=== PATIENT | female | born 1985 | race African-American/Black ===

== ENCOUNTER 2024-02-26 17:35 | Inpatient (IN) | payer MEDICAID ==
[2024-02-26] MEDS ORDERED: Butorphanol 2 MG/ML SDV IVPUSH ONE (17:47)
[2024-02-26] MEDS ORDERED: Lactated Ringers 1,000 ML IV SCH ×3 (18:00→19:30)
[2024-02-26] MEDS ORDERED: Citric Acid/Sodium Citrate Solution 30 ML Cup PO ONE (18:54)
[2024-02-26] MEDS ORDERED: Sodium Chloride 0.9% 10 ML Syringe FLUSH PRN (18:54)
[2024-02-26] MEDS ORDERED: Sodium Chloride 0.9% 2.5 ML Syringe FLUSH PRN (18:54)
[2024-02-26] MEDS ORDERED: Sodium Chloride 0.9% 20 ML SDV IV PRN (18:54)
[2024-02-26] MEDS ORDERED: Oxytocin/0.9 % Sodium Chloride 30 UNIT/500 ML BAG IV SCH (19:00)
[2024-02-26 19:01] LABS: HEMATOCRIT 32.5 % (37.0-47.0); HEMOGLOBIN 11.4 g/dL (12.0-16.0); MEAN CORPUSCULAR HEMOGLOBIN 31.1 pg (28.0-32.0); MEAN CORPUSCULAR HGB CONC 35.1 g/dL (32.0-36.0); MEAN CORPUSCULAR VOLUME 88.6 fL (83.0-99.0); MEAN PLATELET VOLUME 10.2 fL (9.4-12.3); PLATELET COUNT,PLT 188 K/uL (150-400); RED BLOOD CELL COUNT 3.67 M/uL (4.10-5.30); WHITE BLOOD CELL COUNT,WBC 7.37 K/uL (3.9-11.3)
[2024-02-26] MEDS ORDERED: Ondansetron 4 MG/2 ML SDV IVPUSH PRN ×3 (19:18→21:13)
[2024-02-26] MEDS ORDERED: Bisacodyl 10 MG Supp RECTAL PRN (19:18)
[2024-02-26] MEDS ORDERED: Acetaminophen/oxyCODONE 325-5 MG Tab PO PRN ×2 (19:18→21:13)
[2024-02-26] MEDS ORDERED: diphenhydrAMINE 50 MG/ML SDV IVPUSH PRN (19:18)
[2024-02-26] MEDS ORDERED: Misoprostol 200 MCG Tab RECTAL PRN (19:18)
[2024-02-26] MEDS ORDERED: Methylergonovine 0.2 MG/1 ML Amp IM PRN (19:18)
[2024-02-26] MEDS ORDERED: Lanolin 100% Cream 7 GM Tube TOP PRN (19:18)
[2024-02-26] MEDS ORDERED: EPINEPHrine 1 MG/1 ML Amp ONE (19:20)
[2024-02-26] MEDS ORDERED: fentaNYL 100 MCG/2 ML SDV ONE (19:20)
[2024-02-26] MEDS ORDERED: Oxytocin 10 Units/1 ML SDV ONE (19:20)
[2024-02-26] MEDS ORDERED: ceFAZolin 1 GM Vial ONE (19:20)
[2024-02-26] MEDS ORDERED: Bupivacaine 0.25% 30 ML SDV ONE (19:20)
[2024-02-26] MEDS ORDERED: Morphine PF 10 MG/10 ML SDV ONE (19:20)
[2024-02-26] MEDS ORDERED: Ropivacaine 0.5% 5 MG/ML 30 ML SDV ONE (19:20)
[2024-02-26] MEDS: Ampicillin 2 GM in Sodium Chloride 0.9% 100 ML IV STA (19:49)
[2024-02-26] MEDS ORDERED: Phenylephrine HCl In 0.9% NaCl 1 MG/10 ML Syringe ONE (19:51)
[2024-02-26] MEDS ORDERED: Tranexamic Acid 1,000 MG/10 ML Vial ONE (20:14)
[2024-02-26] MEDS ORDERED: HYDROmorphone 1 MG/ML Syringe IVPUSH PRN (21:13)
[2024-02-26] MEDS ORDERED: fentaNYL 50 MCG/ML SDV IVPUSH PRN (21:13)
[2024-02-26] MEDS ORDERED: Naloxone 0.4 MG/ML SDV IVPUSH PRN (21:13)
[2024-02-26] MEDS ORDERED: Albuterol 0.083% 2.5 MG/3 ML Neb Soln NEB PRN (21:13)
[2024-02-26] MEDS ORDERED: Morphine 2 MG/ML SYRINGE IVPUSH PRN (21:13)
[2024-02-26] MEDS ORDERED: Phenylephrine HCl In 0.9% NaCl 1 MG/10 ML Syringe IVPUSH PRN (21:13)
[2024-02-26] MEDS ORDERED: fentaNYL 100 MCG/2 ML SDV IVPUSH PRN (21:13)
[2024-02-26] MEDS ORDERED: Metoclopramide 10 MG/2 ML SDV IVPUSH PRN (21:13)
[2024-02-26] MEDS ORDERED: ePHEDrine 50 MG/ML SDV IM PRN ×2 (21:14→21:15)
[2024-02-26] MEDS ORDERED: Acetaminophen 1,000 MG in Premix Bag 1 BAG IV SCH (21:15)
[2024-02-26] MEDS: Acetaminophen 1,000 MG in Premix Bag 1 BAG IV SCH (22:00)
[2024-02-27] MEDS: Ketorolac 30 MG/ML SDV IVPUSH SCH (01:45)
[2024-02-27 02:51] LABS: PH,UMBILICAL ARTERIAL 7.193 (7.18-7.38); PH,UMBILICAL VENOUS 7.251 (7.25-7.45)
[2024-02-27 07:02] LABS: HEMOGLOBIN 10.1 g/dL (12.0-16.0); MEAN CORPUSCULAR HEMOGLOBIN 31.2 pg (28.0-32.0); MEAN CORPUSCULAR HGB CONC 34.8 g/dL (32.0-36.0); MEAN CORPUSCULAR VOLUME 89.5 fL (83.0-99.0); MEAN PLATELET VOLUME 10.2 fL (9.4-12.3); NRBC ABSOLUTE 0.02 K/uL (0.00-0.02); NRBC PERCENT 0.1 /100WBC (0.0-0.2); PLATELET COUNT,PLT 190 K/uL (150-400); RED BLOOD CELL COUNT 3.24 M/uL (4.10-5.30); WHITE BLOOD CELL COUNT,WBC 17.49 K/uL (3.9-11.3)
[2024-02-27] MEDS: Docusate Sodium 100 MG Cap PO SCH (08:05)
[2024-02-27] MEDS: diphenhydrAMINE 50 MG/ML SDV IVPUSH PRN (14:00)
[2024-02-28] MEDS: Nalbuphine 10 MG/1 ML Vial IVPUSH PRN (00:03)
[2024-02-28] MEDS: Acetaminophen/oxyCODONE 325-5 MG Tab PO PRN (09:54)
[2024-02-28] MEDS: Ibuprofen 800 MG Tab PO PRN (12:59)
== END 2024-02-28 14:31 | disposition home or self-care (01) | DRG 788 ==
LOC: MW.OB 17:35 → MW.OBCHECK 17:35 → MW.OB 18:54 → OBSVTOIN 20:10 → MW.OB 02-27 01:00
PROVIDERS: ADMIT Obstetrics & Gynecology; ATTEND Obstetrics & Gynecology Obstetrics
PROC: 10D00Z1 Extraction of Products of Conception, Low, Open Approach (ICD-10-PCS; principal; 2024-02-27)
DX: O34.211 Maternal care for low transverse scar from previous cesarean delivery (principal); O99.824 Streptococcus B carrier state complicating childbirth; O99.02 Anemia complicating childbirth; O69.2XX0 Labor and delivery complicated by other cord entanglement, with compression, not applicable or unspecified; Z37.0 Single live birth; Z3A.38 38 weeks gestation of pregnancy
CPT/HCPCS: 36415; 59025; 59514; 82803; 85027; 86592; 86850; 86900; 86901; A9270-GY; J0131; J0171; J0290; J0665; J0690; J1100; J1200; J1885; J2274; J2300; J2371; J2590; J2795; J3010; J3490